=== PATIENT | female | born 1975 ===

== ENCOUNTER 2022-01-01 19:34 | Emergency (ER) | payer OTHER ==
[2022-01-01] MEDS ORDERED: diazePAM 5 MG TAB PO ONE (21:36)
[2022-01-01] MEDS ORDERED: ACETAMINOPHEN 500 MG TAB PO ONE (21:36)
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
[2022-01-02] MEDS ORDERED: diazePAM 10 MG/2 ML SYRINGE ONE (00:31)
[2022-01-02] MEDS ORDERED: ACETAMINOPHEN 500 MG TAB PO ONE (00:35)
[2022-01-02] MEDS ORDERED: diazePAM 5 MG TAB PO ONE (00:35)
[2022-01-02 00:49] VITALS: BP 130/73
== END 2022-01-02 00:49 | disposition home or self-care (01) ==
LOC: ED 19:34
DX: S43.91XA Sprain of unspecified parts of right shoulder girdle, initial encounter (principal); S63.591A Other specified sprain of right wrist, initial encounter; Z88.5 Allergy status to narcotic agent; Z79.899 Other long term (current) drug therapy; V87.7XXA Person injured in collision between other specified motor vehicles (traffic), initial encounter; Y93.89 Activity, other specified; Y92.488 Other paved roadways as the place of occurrence of the external cause; Y99.8 Other external cause status
CPT/HCPCS: 72125; 99284; J3360